=== PATIENT | male | born 1990 | race Caucasian/White ===

== ENCOUNTER 2024-08-11 20:26 | Emergency (ER) | payer MEDICAID ==
[~2024-08-11] VITALS: Ht 177.8 cm; Wt 82.0 kg
[2024-08-11 20:30] VITALS: O2SAT 98
[2024-08-11] MEDS: SODIUM CHLORIDE 0.9% 1,000 ML IV ONE (22:24)
[2024-08-11] MEDS: KETOROLAC 30MG/ML VIAL IV STA (22:24)
[2024-08-11] MEDS: TETANUS, DIPHTHERIA, PERTUSSIS VAC/PF 0.5ML (>10YR OLD) IM ONE (22:28)
[2024-08-11 22:56] LABS: BASOPHILS % 0.3 % (0.0-2.0); EOSINOPHILS % 0.1 % (0.0-5.0); HEMATOCRIT. 44.1 % (42.0-52.0); HEMOGLOBIN. 15.4 g/dL (14.0-18.0); LYMPHOCYTES % 9.6 % (20.0-50.0); MEAN CORPUSCULAR HGB CONC 34.9 g/dL (31.0-37.0); MEAN CORPUSCULAR VOLUME 83.1 fL (80.0-94.0); MEAN PLATELET VOLUME 9.6 fl (7.4-10.4); MONOCYTES % 3.8 % (2.0-8.0); NEUTROPHILS % 86.2 % (40.0-76.0); PLATELET 217 x1000/uL (130-400); RED BLOOD CELL COUNT 5.31 mill/uL (4.7-6.1); RED CELL DISTRIBUTION WIDTH 13.4 % (11.6-14.6); WHITE BLOOD COUNT 15.5 x1000/uL (4.5-11.0)
[2024-08-11 23:08] LABS: CHLORIDE 109 mEq/L (98-107); POTASSIUM 3.6 mEq/L (3.5-5.1); SODIUM 146 mEq/L (136-145)
[2024-08-11 23:09] LABS: CARBON DIOXIDE 23 mEq/L (21-32)
[2024-08-11 23:14] LABS: CREATININE 0.9 mg/dL (0.6-1.3); GLUCOSE 114 mg/dL (70-105); UREA NITROGEN BLOOD 8 mg/dL (9-23)
[2024-08-11 23:15] LABS: ETHANOL BLOOD 93 mg/dL (<10)
[2024-08-12] MEDS: MORPHINE SULFATE 4 MG/ML INJ (FOR IV/IM USE) IV NR (00:51)
[2024-08-12] MEDS: ONDANSETRON HCL 4MG/2ML INJ IV NR (00:53)
[2024-08-12] MEDS: LIDOCAINE HCL/PF 1% 10 MG/ML 5ML VIAL INFIL ONE (01:29)
[2024-08-12] MEDS: BACITRACIN ZINC OINT UDPKT TOP ONE (01:29)
[2024-08-12] MEDS: MORPHINE SULFATE 4 MG/ML INJ (FOR IV/IM USE) IV ONE ×3 (03:39→07:56)
[2024-08-12 12:00] VITALS: TEMP 36.6; O2SAT 98
[2024-08-12 12:53] VITALS: BP 109/78; PULSE 80; RESP 16
[2024-08-12] MEDS: MORPHINE SULFATE 4 MG/ML INJ (FOR IV/IM USE) IM ONE (12:53)
== END 2024-08-12 13:08 | disposition short-term general hospital (02) ==
LOC: ER 20:26 → CANBEDREQ 08-12 10:42 → ER 08-12 13:08
DX: S61.431A Puncture wound without foreign body of right hand, initial encounter (principal); S42.92XA Fracture of left shoulder girdle, part unspecified, initial encounter for closed fracture; F10.129 Alcohol abuse with intoxication, unspecified; R41.82 Altered mental status, unspecified; V89.2XXA Person injured in unspecified motor-vehicle accident, traffic, initial encounter; Y93.89 Activity, other specified; Y92.89 Other specified places as the place of occurrence of the external cause; Y99.8 Other external cause status; Y90.9 Presence of alcohol in blood, level not specified
CPT/HCPCS: 80048; 80320; 85025; 36415; 73030; 73060; 73130; 70450; 93005; 12001; 96361; 96374; 99285; 73200; 96372; 96375; 96376; J1885; J7030; J2003; J2405; J2270; Z7610; G0480